=== PATIENT | female | born 1985 | race Caucasian/White ===

== ENCOUNTER 2020-01-02 14:35 | Inpatient (IN) | payer MEDICAID ==
[~2020-01-02] VITALS: Ht 160 cm; Wt 63.0 kg
[2020-01-02] MEDS ORDERED: PERMETHRIN 5% 60 GM CREAM TP ONE (17:00)
[2020-01-02 17:50] VITALS: BP 129/83
[2020-01-02] MEDS ORDERED: INFLUENZA VIRUS VACCINE QVS 2019-20 (3YR+)/PF 60 MCG/0.5 ML SYRINGE IM ONE (18:30)
[2020-01-02] MEDS ORDERED: ALBUTEROL SULFATE HFA 90 MCG/PUFF 8 GM INHALER IH PRN (18:45)
[2020-01-02] MEDS ORDERED: LOPERAMIDE HCL 2 MG CAPSULE PO PRN (18:45)
[2020-01-02] MEDS ORDERED: GuaiFENesin/D-METHORPHAN [SUGAR-FREE] 200-20MG/10 ML SYRUP UDCUP PO PRN (18:45)
[2020-01-02] MEDS ORDERED: DOCUSATE SODIUM 100 MG CAPSULE PO PRN (18:45)
[2020-01-02] MEDS ORDERED: PETROLATUM,WHITE 28 GM JELLY TP PRN (18:45)
[2020-01-02] MEDS ORDERED: ONDANSETRON HCL 4 MG TABLET PO PRN (18:45)
[2020-01-02] MEDS ORDERED: MAG HYDROX/AL HYDROX/SIMETH ES 30 ML SUSPENSION UDCUP PO PRN (18:45)
[2020-01-02] MEDS ORDERED: IBUPROFEN 400 MG TABLET PO PRN (18:45)
[2020-01-02] MEDS ORDERED: MAGNESIUM HYDROXIDE SUSPENSION 30 ML UDCUP PO PRN (18:45)
[2020-01-02] MEDS ORDERED: NICOTINE 14 MG/24 HOUR PATCH TD PRN (18:45)
[2020-01-02] MEDS ORDERED: CloNIDine HCL 0.1 MG TABLET PO PRN (18:45)
[2020-01-03 05:08] VITALS: BP 158/98
[2020-01-03 07:27] LABS: BASOPHILS % (AUTO) 0.7 % (0.0-2.0); HEMATOCRIT 38.3 % (36-46); LYMPHOCYTES # (AUTO) 1.2 K/uL (1.0-4.8); MEAN CORPUSCULAR HEMOGLOBIN 31.3 pg (26.0-34.0); MEAN CORPUSCULAR HGB CONC 33.9 G/dL (31.0-37.0); MEAN CORPUSCULAR VOLUME 92 fL (80-100); MONOCYTES # (AUTO) 0.9 K/uL (0.1-1.0); MONOCYTES % (AUTO) 12.2 % (2.0-9.0); NEUTROPHILS # (AUTO) 5.3 K/uL (1.8-7.7); NEUTROPHILS % (AUTO) 70.1 % (40.0-70.0); PLATELET COUNT (AUTO) 328 K/uL (150-450); RED BLOOD CELL COUNT(AUTO) 4.16 MIL/uL (4.00-5.20); RED CELL DISTRIBUTION WIDTH 14.5 % (11.5-14.5)
[2020-01-03 07:39] LABS: HEMOGLOBIN A1C 5.2 % (3.8-5.6)
[2020-01-03 08:07] LABS: ALANINE AMINOTRANSFERASE 34 U/L (12-78); ALBUMIN 3.4 g/dL (3.4-5.0); ALKALINE PHOSPHATASE 43 U/L (46-116); ANION GAP 8 mmol/L (8-16); ASPARTATE AMINOTRANSFERASE 17 U/L (15-37); BILIRUBIN,TOTAL 0.3 mg/dL (0.1-1.0); CALCIUM, TOTAL 8.8 mg/dL (8.8-10.5); CARBON DIOXIDE 27 mmol/L (22-29); CHLORIDE 102 mmol/L (98-107); CHOL/HDL RATIO 3.6 (3.9-5.7); CHOLESTEROL 159 mg/dL (131-200); CREATININE 0.69 mg/dL (0.60-1.30); GLOMERULAR FILTR. RATE CALC > 60 mL/min (>60); GLUCOSE,RANDOM 104 mg/dL (70-110); HDL CHOLESTEROL 44 mg/dL (40-60); LDL CHOL (CALC.) 105 mg/dL (0-130); POTASSIUM 3.9 mmol/L (3.5-5.1); SODIUM SERUM 137 mmol/L (136-145); THYROID STIMULATING HORMONE 3.21 uIU/mL (0.36-3.74); TOTAL PROTEIN, SERUM 6.9 g/dL (6.4-8.2); TRIGLYCERIDES 49 mg/dL (15-150); UREA NITROGEN, BLOOD 10 mg/dL (7-18)
[2020-01-03 08:23] LABS: AMPHET/METH SCREEN,URINE NEGATIVE (NEGATIVE); BARBITURATE SCREEN, URINE NEGATIVE (NEGATIVE); BENZODIAZEPINES SCREEN,URINE NEGATIVE (NEGATIVE); CANNABINOID SCREEN,URINE NEGATIVE (NEGATIVE); COCAINE SCREEN,URINE NEGATIVE (NEGATIVE); METHADONE SCREEN, URINE NEGATIVE (NEGATIVE); OPIATE SCREEN,URINE NEGATIVE (NEGATIVE); PHENCYCLIDINE SCREEN,URINE NEGATIVE (NEGATIVE)
[2020-01-03] MEDS: LORazepam 2 MG TABLET PO PRN ×3 (08:39→17:44)
[2020-01-03] MEDS: HALOPERIDOL 5 MG TABLET PO PRN ×2 (08:39→14:34)
[2020-01-03] MEDS: DIVALPROEX SODIUM 250 MG DR TABLET PO SCH ×2 (08:39→16:29)
[2020-01-03 13:00] VITALS: BP 129/70
[2020-01-03] MEDS: ARIPiprazole 10 MG TABLET PO SCH (14:58)
[2020-01-03 17:36] VITALS: BP 131/86
[2020-01-04 05:16] VITALS: BP 134/82
[2020-01-04] MEDS: DIVALPROEX SODIUM 250 MG DR TABLET PO SCH ×2 (08:11→16:01)
[2020-01-04] MEDS: ARIPiprazole 10 MG TABLET PO SCH (08:11)
[2020-01-04 11:51] VITALS: BP 138/83
[2020-01-04] MEDS: HALOPERIDOL 5 MG TABLET PO PRN (16:01)
[2020-01-04 16:02] VITALS: BP 140/80
[2020-01-05 03:14] VITALS: BP 134/84
[2020-01-05] MEDS: LORazepam 2 MG TABLET PO PRN ×3 (03:40→17:40)
[2020-01-05] MEDS: HALOPERIDOL 5 MG TABLET PO PRN ×2 (05:23→15:38)
[2020-01-05 08:02] VITALS: BP 138/83
[2020-01-05] MEDS: DIVALPROEX SODIUM 250 MG DR TABLET PO SCH ×2 (09:46→17:10)
[2020-01-05] MEDS: ARIPiprazole 10 MG TABLET PO SCH (09:46)
[2020-01-05] MEDS: ACETAMINOPHEN 325 MG TABLET PO PRN (15:38)
[2020-01-05 15:39] VITALS: BP 129/78
[2020-01-05 19:18] VITALS: BP 123/58
[2020-01-06 04:32] VITALS: BP 112/67
[2020-01-06 07:49] LABS: APPEARANCE,URINE CLEAR (CLEAR); BILIRUBIN,URINE NEGATIVE (NEGATIVE); GLUCOSE, URINE (UA) NEGATIVE (NEGATIVE); KETONES,URINE NEGATIVE (NEGATIVE); LEUKOCYTE ESTERASE ,URINE NEGATIVE (NEGATIVE); NITRATE,URINE NEGATIVE (NEGATIVE); OCCULT BLOOD,URINE NEGATIVE (NEGATIVE); PH,URINE 6.5 (5.0-8.0); PROTEIN,URINE NEGATIVE (NEGATIVE); UROBILINOGEN,URINE 0.2 mg/dL (<=1.0)
[2020-01-06 07:55] LABS: AMPHET/METH SCREEN,URINE NEGATIVE (NEGATIVE); BARBITURATE SCREEN, URINE NEGATIVE (NEGATIVE); BENZODIAZEPINES SCREEN,URINE NEGATIVE (NEGATIVE); CANNABINOID SCREEN,URINE NEGATIVE (NEGATIVE); COCAINE SCREEN,URINE NEGATIVE (NEGATIVE); METHADONE SCREEN, URINE NEGATIVE (NEGATIVE); OPIATE SCREEN,URINE NEGATIVE (NEGATIVE)
[2020-01-06 07:59] LABS: PHENCYCLIDINE SCREEN,URINE NEGATIVE (NEGATIVE)
[2020-01-06 08:26] VITALS: BP 124/71
[2020-01-06] MEDS: DIVALPROEX SODIUM 250 MG DR TABLET PO SCH ×2 (10:14→17:02)
[2020-01-06] MEDS: ARIPiprazole 10 MG TABLET PO SCH (10:14)
[2020-01-06 16:52] VITALS: BP 136/80
[2020-01-06] MEDS: ZOLPIDEM TARTRATE 10 MG TABLET PO PRN (20:56)
[2020-01-07 02:45] VITALS: BP 126/74
[2020-01-07] MEDS: HALOPERIDOL 5 MG TABLET PO PRN (04:24)
[2020-01-07] MEDS: LORazepam 2 MG TABLET PO PRN ×2 (04:24→15:45)
[2020-01-07] MEDS: ARIPiprazole 10 MG TABLET PO SCH (08:08)
[2020-01-07] MEDS: DIVALPROEX SODIUM 250 MG DR TABLET PO SCH ×2 (08:08→16:12)
[2020-01-07 09:56] VITALS: BP 144/92
[2020-01-07 16:49] VITALS: BP 123/87
[2020-01-08] MEDS: ZOLPIDEM TARTRATE 10 MG TABLET PO PRN ×2 (02:59→20:02)
[2020-01-08 03:04] VITALS: BP 120/80
[2020-01-08 08:10] VITALS: BP 115/77
[2020-01-08] MEDS: DIVALPROEX SODIUM 250 MG DR TABLET PO SCH ×2 (08:59→16:38)
[2020-01-08] MEDS: ARIPiprazole 10 MG TABLET PO SCH (08:59)
[2020-01-08] MEDS: LORazepam 2 MG TABLET PO PRN (09:42)
[2020-01-08 16:53] VITALS: BP 130/84
[2020-01-09] MEDS: LORazepam 2 MG TABLET PO PRN ×3 (00:14→12:59)
[2020-01-09 00:17] VITALS: BP 136/82
[2020-01-09 07:10] VITALS: BP 139/78
[2020-01-09] MEDS: ARIPiprazole 15 MG TABLET PO SCH (08:21)
[2020-01-09] MEDS: DIVALPROEX SODIUM 250 MG DR TABLET PO SCH ×2 (08:21→16:09)
[2020-01-09 09:00] VITALS: BP 118/76
[2020-01-09 09:20] VITALS: BP 118/76
[2020-01-09] MEDS: HALOPERIDOL 5 MG TABLET PO PRN (14:22)
[2020-01-09 15:30] VITALS: BP 117/77
[2020-01-09] MEDS: ACETAMINOPHEN 325 MG TABLET PO PRN (15:35)
[2020-01-10] MEDS: ARIPiprazole 15 MG TABLET PO SCH (08:12)
[2020-01-10] MEDS: DIVALPROEX SODIUM 250 MG DR TABLET PO SCH ×2 (08:12→16:00)
[2020-01-10 08:37] VITALS: BP 128/77
[2020-01-10] MEDS: ACETAMINOPHEN 325 MG TABLET PO PRN (16:00)
[2020-01-10 16:12] VITALS: BP 112/74
[2020-01-10] MEDS: LORazepam 2 MG TABLET PO PRN (19:01)
[2020-01-11] MEDS: ARIPiprazole 15 MG TABLET PO SCH (08:31)
[2020-01-11] MEDS: DIVALPROEX SODIUM 250 MG DR TABLET PO SCH (08:31)
[2020-01-11 08:38] VITALS: BP 163/85
[2020-01-11] MEDS: LORazepam 2 MG TABLET PO PRN ×2 (13:31→18:52)
[2020-01-11 14:26] VITALS: BP 134/78
[2020-01-11] MEDS: ACETAMINOPHEN 325 MG TABLET PO PRN (14:26)
[2020-01-11] MEDS: DIVALPROEX SODIUM 500 MG DR TABLET PO SCH (16:17)
[2020-01-11 16:42] VITALS: BP 117/76
[2020-01-11 18:52] VITALS: BP 121/73
[2020-01-11] MEDS: ZOLPIDEM TARTRATE 10 MG TABLET PO PRN (20:17)
[2020-01-12 08:00] VITALS: BP 106/77
[2020-01-12] MEDS: DIVALPROEX SODIUM 500 MG DR TABLET PO SCH ×2 (09:50→16:06)
[2020-01-12] MEDS: ARIPiprazole 15 MG TABLET PO SCH (09:50)
[2020-01-12] MEDS: LORazepam 2 MG TABLET PO PRN (15:05)
[2020-01-12] MEDS: ACETAMINOPHEN 325 MG TABLET PO PRN (15:05)
[2020-01-12 16:40] VITALS: BP 110/66
[2020-01-12] MEDS: ZOLPIDEM TARTRATE 10 MG TABLET PO PRN (21:11)
[2020-01-13] MEDS: DIVALPROEX SODIUM 500 MG DR TABLET PO SCH ×2 (09:05→16:30)
[2020-01-13] MEDS: ARIPiprazole 15 MG TABLET PO SCH (09:05)
[2020-01-13 09:13] VITALS: BP 133/74
[2020-01-13] MEDS: LORazepam 2 MG TABLET PO PRN (14:07)
[2020-01-13] MEDS: ACETAMINOPHEN 325 MG TABLET PO PRN (18:25)
[2020-01-13 18:26] VITALS: BP 129/79
[2020-01-13] MEDS: ZOLPIDEM TARTRATE 10 MG TABLET PO PRN (20:03)
[2020-01-14] MEDS: ARIPiprazole 15 MG TABLET PO SCH (08:38)
[2020-01-14] MEDS: DIVALPROEX SODIUM 500 MG DR TABLET PO SCH ×2 (08:38→16:17)
[2020-01-14 11:42] VITALS: BP 111/72
[2020-01-14] MEDS: LORazepam 2 MG TABLET PO PRN (14:23)
[2020-01-14] MEDS: ACETAMINOPHEN 325 MG TABLET PO PRN (16:17)
[2020-01-14 16:34] VITALS: BP 103/64
[2020-01-14] MEDS: ZOLPIDEM TARTRATE 10 MG TABLET PO PRN (20:06)
[2020-01-15] MEDS: ARIPiprazole 15 MG TABLET PO SCH (09:14)
[2020-01-15] MEDS: DIVALPROEX SODIUM 500 MG DR TABLET PO SCH (09:14)
[2020-01-15] MEDS ORDERED: ARIP15TA2 PO (10:19)
[2020-01-15] MEDS ORDERED: DIVA-78 PO (10:19)
== END 2020-01-15 11:00 | disposition home or self-care (01) | DRG 885 ==
LOC: 3EI 15:45
DX: F25.1 Schizoaffective disorder, depressive type (principal); R45.851 Suicidal ideations; G40.909 Epilepsy, unspecified, not intractable, without status epilepticus; I10 Essential (primary) hypertension; F10.10 Alcohol abuse, uncomplicated; F19.10 Other psychoactive substance abuse, uncomplicated; R21 Rash and other nonspecific skin eruption; F15.90 Other stimulant use, unspecified, uncomplicated; K59.00 Constipation, unspecified; Y90.9 Presence of alcohol in blood, level not specified; Z59.0 Homelessness; Z79.899 Other long term (current) drug therapy; Z23 Encounter for immunization
CPT/HCPCS: 80307; 83036; 84443; 87081; 90686

== ENCOUNTER 2020-01-20 16:26 | Inpatient (IN) | payer MEDICAID ==
[~2020-01-20] VITALS: Ht 160 cm; Wt 63.7 kg
[~2020-01-20 16:26] MED LIST: ARIP15TA2 PO; DIVA-78 PO
[2020-01-20] MEDS ORDERED: NICOTINE 14 MG/24 HOUR PATCH TD ONE (22:15)
[2020-01-20] MEDS ORDERED: ACETAMINOPHEN 325 MG TABLET PO PRN (22:15)
[2020-01-20] MEDS ORDERED: HALOPERIDOL 5 MG TABLET PO PRN (22:15)
[2020-01-20] MEDS ORDERED: GuaiFENesin/D-METHORPHAN [SUGAR-FREE] 200-20MG/10 ML SYRUP UDCUP PO PRN (22:15)
[2020-01-20] MEDS ORDERED: CloNIDine HCL 0.1 MG TABLET PO PRN (22:30)
[2020-01-20] MEDS ORDERED: LOPERAMIDE HCL 2 MG CAPSULE PO PRN (22:30)
[2020-01-20 23:03] VITALS: BP 131/71
[2020-01-20] MEDS: DIVALPROEX SODIUM 250 MG DR TABLET PO SCH (23:10)
[2020-01-20] MEDS ORDERED: NICOTINE 14 MG/24 HOUR PATCH TD PRN (23:15)
[2020-01-21 00:07] VITALS: BP 128/69
[2020-01-21] MEDS: IBUPROFEN 400 MG TABLET PO SCH ×2 (00:07→05:02)
[2020-01-21] MEDS ORDERED: IBUPROFEN 400 MG TABLET PO PRN (06:15)
[2020-01-21] MEDS: DIVALPROEX SODIUM 250 MG DR TABLET PO SCH (08:37)
[2020-01-21 10:27] VITALS: BP 140/79
[2020-01-21] MEDS ORDERED: DIVALPROEX SODIUM 250 MG DR TABLET PO ONE (11:15)
[2020-01-21] MEDS: ARIPiprazole 15 MG TABLET PO SCH (11:44)
[2020-01-21] MEDS: DIVALPROEX SODIUM 500 MG DR TABLET PO SCH (17:02)
[2020-01-21 17:44] VITALS: BP 105/72
[2020-01-21] MEDS: ZOLPIDEM TARTRATE 10 MG TABLET PO PRN (20:30)
[2020-01-22 09:03] VITALS: BP 114/76
[2020-01-22] MEDS: DIVALPROEX SODIUM 500 MG DR TABLET PO SCH ×2 (09:20→16:01)
[2020-01-22] MEDS: ARIPiprazole 15 MG TABLET PO SCH (09:20)
[2020-01-22 16:59] VITALS: BP 110/70
[2020-01-22] MEDS: LORazepam 2 MG TABLET PO PRN (17:59)
[2020-01-23 05:00] VITALS: BP 116/78
[2020-01-23] MEDS: LORazepam 2 MG TABLET PO PRN ×2 (05:00→16:45)
[2020-01-23] MEDS: ARIPiprazole 15 MG TABLET PO SCH (08:49)
[2020-01-23] MEDS: DIVALPROEX SODIUM 500 MG DR TABLET PO SCH ×2 (08:49→16:01)
[2020-01-23 11:28] VITALS: BP 103/58
[2020-01-23 17:12] VITALS: BP 105/58
[2020-01-23] MEDS: ZOLPIDEM TARTRATE 10 MG TABLET PO PRN (20:03)
[2020-01-24 00:20] VITALS: BP 115/71
[2020-01-24] MEDS: LORazepam 2 MG TABLET PO PRN ×3 (00:24→18:07)
[2020-01-24 08:00] VITALS: BP 124/70
[2020-01-24] MEDS: DIVALPROEX SODIUM 500 MG DR TABLET PO SCH ×2 (08:52→16:29)
[2020-01-24] MEDS: ARIPiprazole 15 MG TABLET PO SCH (08:52)
[2020-01-24 16:00] VITALS: BP 104/62
[2020-01-24] MEDS: ZOLPIDEM TARTRATE 10 MG TABLET PO PRN (20:03)
[2020-01-25 08:00] VITALS: BP 112/68
[2020-01-25] MEDS: DIVALPROEX SODIUM 500 MG DR TABLET PO SCH ×2 (09:32→16:49)
[2020-01-25] MEDS: ARIPiprazole 15 MG TABLET PO SCH (09:32)
[2020-01-25] MEDS: LORazepam 2 MG TABLET PO PRN (12:53)
[2020-01-25 18:46] VITALS: BP 110/58
[2020-01-25] MEDS: ZOLPIDEM TARTRATE 10 MG TABLET PO PRN (20:27)
[2020-01-26] MEDS: ARIPiprazole 15 MG TABLET PO SCH (09:32)
[2020-01-26] MEDS: DIVALPROEX SODIUM 500 MG DR TABLET PO SCH ×2 (09:32→16:43)
[2020-01-26] MEDS: SERTRALINE HCL 50 MG TABLET PO SCH (09:33)
[2020-01-26 12:42] VITALS: BP 112/61
[2020-01-26] MEDS: LORazepam 2 MG TABLET PO PRN (17:54)
[2020-01-26] MEDS: ZOLPIDEM TARTRATE 10 MG TABLET PO PRN (20:04)
[2020-01-26 23:14] VITALS: BP 110/68
[2020-01-27] MEDS: DIVALPROEX SODIUM 500 MG DR TABLET PO SCH ×2 (08:33→17:13)
[2020-01-27] MEDS: SERTRALINE HCL 50 MG TABLET PO SCH (08:33)
[2020-01-27] MEDS: ARIPiprazole 15 MG TABLET PO SCH (08:33)
[2020-01-27 09:12] VITALS: BP 122/54
[2020-01-27 17:54] VITALS: BP 122/72
[2020-01-27] MEDS: ZOLPIDEM TARTRATE 10 MG TABLET PO PRN (21:05)
[2020-01-28 05:25] VITALS: BP 118/79
[2020-01-28] MEDS: LORazepam 2 MG TABLET PO PRN (05:25)
[2020-01-28] MEDS: DIVALPROEX SODIUM 500 MG DR TABLET PO SCH (08:27)
[2020-01-28] MEDS: SERTRALINE HCL 50 MG TABLET PO SCH (08:27)
[2020-01-28] MEDS: ARIPiprazole 15 MG TABLET PO SCH (08:27)
[2020-01-28 08:53] VITALS: BP 100/61
[2020-01-28] MEDS: DIVALPROEX SODIUM 250 MG DR TABLET PO SCH (16:50)
[2020-01-28 17:25] VITALS: BP 123/70
[2020-01-29] MEDS: SERTRALINE HCL 50 MG TABLET PO SCH (08:21)
[2020-01-29] MEDS: DIVALPROEX SODIUM 250 MG DR TABLET PO SCH ×2 (08:21→16:02)
[2020-01-29] MEDS: ARIPiprazole 15 MG TABLET PO SCH (08:21)
[2020-01-29 08:30] VITALS: BP 124/59
[2020-01-29] MEDS: LORazepam 2 MG TABLET PO PRN (15:39)
[2020-01-29 16:37] VITALS: BP 129/81
[2020-01-30] MEDS: SERTRALINE HCL 50 MG TABLET PO SCH (08:35)
[2020-01-30] MEDS: ARIPiprazole 15 MG TABLET PO SCH (08:35)
[2020-01-30] MEDS: DIVALPROEX SODIUM 250 MG DR TABLET PO SCH ×2 (08:35→16:14)
[2020-01-30 10:42] VITALS: BP 111/71
[2020-01-30 16:43] VITALS: BP 101/72
[2020-01-30] MEDS: LORazepam 2 MG TABLET PO PRN (19:03)
[2020-01-31 08:08] LABS: BASOPHILS % (AUTO) 1.1 % (0.0-2.0); HEMOGLOBIN 13.8 g/dL (12.0-16.0); LYMPHOCYTES # (AUTO) 1.4 K/uL (1.0-4.8); LYMPHOCYTES % (AUTO) 22.7 % (22.0-44.0); MEAN CORPUSCULAR HEMOGLOBIN 30.7 pg (26.0-34.0); MEAN CORPUSCULAR HGB CONC 33.6 G/dL (31.0-37.0); MEAN CORPUSCULAR VOLUME 92 fL (80-100); MONOCYTES # (AUTO) 0.6 K/uL (0.1-1.0); MONOCYTES % (AUTO) 10.3 % (2.0-9.0); NEUTROPHILS # (AUTO) 3.9 K/uL (1.8-7.7); NEUTROPHILS % (AUTO) 62.9 % (40.0-70.0); PLATELET COUNT (AUTO) 298 K/uL (150-450); RED BLOOD CELL COUNT(AUTO) 4.48 MIL/uL (4.00-5.20); RED CELL DISTRIBUTION WIDTH 13.9 % (11.5-14.5)
[2020-01-31] MEDS: SERTRALINE HCL 50 MG TABLET PO SCH (08:18)
[2020-01-31] MEDS: ARIPiprazole 15 MG TABLET PO SCH (08:18)
[2020-01-31] MEDS: DIVALPROEX SODIUM 250 MG DR TABLET PO SCH ×2 (08:19→12:45)
[2020-01-31 08:51] LABS: ANION GAP 7 mmol/L (8-16); CALCIUM, TOTAL 8.9 mg/dL (8.8-10.5); CARBON DIOXIDE 30 mmol/L (22-29); CHLORIDE 105 mmol/L (98-107); CREATININE 0.75 mg/dL (0.60-1.30); GLOMERULAR FILTR. RATE CALC > 60 mL/min (>60); GLUCOSE,RANDOM 77 mg/dL (70-110); POTASSIUM 4.7 mmol/L (3.5-5.1); SODIUM SERUM 142 mmol/L (136-145); UREA NITROGEN, BLOOD 16 mg/dL (7-18)
[2020-01-31] MEDS ORDERED: SERT50TA12 PO (10:05)
[2020-01-31 10:12] VITALS: BP 146/67
== END 2020-01-31 13:00 | disposition home or self-care (01) | DRG 885 ==
LOC: 3EI 20:12
DX: F25.1 Schizoaffective disorder, depressive type (principal); R45.851 Suicidal ideations; F10.10 Alcohol abuse, uncomplicated; F15.10 Other stimulant abuse, uncomplicated; G40.909 Epilepsy, unspecified, not intractable, without status epilepticus; Z59.0 Homelessness; Z79.899 Other long term (current) drug therapy; Z87.820 Personal history of traumatic brain injury
CPT/HCPCS: 93005